=== PATIENT | male | born 1950 | race Two or more races ===

== ENCOUNTER 2023-10-21 07:08 | Day surgery (SDC) | payer OTHER, SELFPAY ==
[2023-10-21] VITALS (14 sets, daily range): BP systolic 115–137; BP diastolic 61–71; BMI 25.9
[2023-10-21] MEDS: LOW STRENGTH ASPIRIN 81 MG PO (07:58)
[2023-10-21 08:00] LABS: Glucose - Point of Care 122 mg/dl (70-99)
[2023-10-21] MEDS: NSS 239 ML IV (08:01)
--- NOTE | 2023-10-21 10:30 | ITS.CL.CATH ---
[facility] - Catheterization
Cardiac Catheterization
Procedure Report:
LEFT HEART CATHETERIZATION
Date of Procedure: October 21, 2023
Procedures performed:
1: Coronary angiography
2: Left ventriculography
Primary Care Physician: Dr. Abhi Crum
Primary Senior Marketing Analyst: Myself
INDICATION: The patient is a 72-year-old male with a past medical history of coronary artery disease status post distant LAD stenting followed by restenting in May 2024 at [facility], diabetes mellitus and hypertension who presents
with recurrent exertional dyspnea. Nuclear perfusion imaging suggests significant LAD territory ischemia.
ACCESS: The patient was prepped and draped in usual sterile fashion. A 6 Togolese sheath was placed in the right common femoral artery using the Seldinger over the wire technique under ultrasound guidance. The right radial artery was attempted but
under ultrasound appears to be occluded after his May catheterization.
HEMODYNAMIC FINDINGS (mmHg):
LV(s/d,EDP): 140/11, 22
Ao(s/d,m): 140/76, 97
ANGIOGRAPHIC FINDINGS:
Single-plane Left Ventriculography in COUGHLIN Projection: Mild inferoapical hypokinesis. Severe apical hypokinesis. Severe anteroapical hypokinesis. Overall moderate LV systolic dysfunction with a visually estimated ejection fraction of 40%. No
significant mitral regurgitation
Coronary Angiography:
Dominance: Right
Left Main: Medium caliber with mild distal tapering.
Left Anterior Descending: The left anterior descending artery is functionally occluded with critical diffuse obstructive in-stent restenosis of the previously placed overlapping stents. There is a trickle of antegrade flow into 2 small jailed
diagonal branches. Very faint underfilling of the mid and distal LAD is appreciated. The distal LAD also fills via right to left collaterals.
Ramus intermedius: There is a small to medium caliber ramus intermedius branch present that has a 80 to 90% ostial stenosis with normal distal flow. This appears too small for surgical grafting.
Left Circumflex: The left circumflex has a somewhat acute takeoff from the left main and gives rise to 1 major obtuse marginal branch that is widely patent with only mild luminal irregularities.
Right Coronary: The right coronary artery is a large-caliber dominant vessel that gives rise to a small caliber dual posterior descending artery system and larger posterior left ventricular branch system. Right coronary artery has at worst a smooth
40 to 50% proximal stenosis at the first bend followed by distal luminal irregularities. This appears unchanged from prior angiography in 2017.
Fluoroscopy Time (min): 4.0
Radiation Dose (mGy): 441
DAP (Gy.cm2): 33
Closure device: 6 Togolese Angio-Seal to right common femoral artery without acute complication.
Complications: None.
ASSESSMENT:
1: Severe single-vessel obstructive disease with functional occlusion of the recently placed LAD stent.
2: Unchanged anatomy with high-grade small vessel disease in the ramus and nonobstructive disease in the circumflex/OM1 and dominant right coronary artery.
3: Moderate LV dysfunction with LAD territory wall motion abnormality and no significant mitral gravitation.
CONCLUSIONS and RECOMMENDATIONS:
1: CT surgical evaluation for CABG. There is significant viability in the anterior wall and I believe a reasonable surgical target in the LAD.
Sujata Freeman M.D.
Copy to: Dr. Abhi Crum
[2023-10-21] MEDS: NSS 1000 IV (10:32)
[2023-10-21 10:39] LABS: Glucose - Point of Care 89 mg/dl (70-99)
--- NOTE | 2023-10-21 13:30 | PTCARENOTE ---
Nathalia WELLS made aware of pt's episode of right groin bleeding. Currently pt remains in bed with dressing dry and intact to right groin. Per SEAT INSTALLER pt to remain on bedrest until 1400 and then should attempt ambulating again. If no recurrent
bleeding pt may be discharged after 1400.
== END 2023-10-21 14:15 | disposition home or self-care (01) ==
LOC: CATH 07:08
PROVIDERS: ATTENDING PHYSICIAN Internal Medicine Interventional Cardiology; PRIMARYCARE PHYSICIAN Internal Medicine
DX: I25.10 Atherosclerotic heart disease of native coronary artery without angina pectoris (principal); R06.09 Other forms of dyspnea; I10 Essential (primary) hypertension; E11.9 Type 2 diabetes mellitus without complications; Z95.5 Presence of coronary angioplasty implant and graft
CPT/HCPCS: 82962; 93005; 93458; C1760; C1894; Q9967

== ENCOUNTER 2023-11-11 05:01 | Inpatient (IN) | payer OTHER, SELFPAY ==
[2023-10-29 08:08] VITALS: BMI 26.4
[2023-10-29 08:49] LABS: % Basophils 0.9 % (0-2); % Eosinophils 2.1 % (0-6); % Immature Granulocytes 0.1 % (0-0.5); % Lymphocytes 35.2 % (20.5-51.1); % Monocytes 8.6 % (1.7-9.3); % Neutrophils 53.1 % (42.2-75.2); Absolute Basophils 0.1 10^3/uL (0-0.2); Absolute Eosinophils 0.1 10^3/uL (0-0.7); Absolute Lymphocytes 2.4 10^3/uL (1.2-3.4); Absolute Monocytes 0.6 10^3/uL (0.1-0.6); Absolute Neutrophils 3.6 10^3/uL (1.4-6.5); Hematocrit 36.4 % (39.0-52.0); Hemoglobin 11.1 g/dL (13.0-18.0); Mean Corp Hgb Conc. 30.5 g/dL (33.0-37.0); Mean Corpuscular Hgb 23.5 pg (27.0-31.0); Nucleated Red Blood Cells % 0 % (-); Platelet Count 207 10^3/uL (130-400); Red Blood Cell Count 4.73 10^6/uL (4.70-6.10); Red Cell Dist. Width 17.3 % (11.5-14.5); White Blood Cell Count 6.7 10^3/uL (4.8-10.8)
[2023-10-29 08:53] LABS: Urine Albumin Negative (Neg - Trace); Urine Bilirubin Negative (Negative); Urine Character Clear (Clear); Urine Color Straw; Urine Glucose 3+ (Negative); Urine Ketone Negative (Negative); Urine Leukocyte Negative (Negative); Urine Nitrite Negative (Negative); Urine Occult Blood Negative (Negative); Urine Specific Gravity 1.005 (<1.030); Urine Urobilinogen Negative (Neg - 1+)
[2023-10-29 08:55] LABS: INR 1.02; PT 13.4 Sec (11.4-14.6)
[2023-10-29 08:56] LABS: APTT 28.4 Sec (23.4-35.0)
[2023-10-29 09:33] LABS: ALT (SGPT) 16 U/L (0-50); AST (SGOT) 23 U/L (17-59); Albumin 4.3 g/dl (3.5-5.0); Alkaline Phosphatase 61 U/L (38-126); Blood Urea Nitrogen 12 mg/dl (9-20); Calcium 10.1 mg/dl (8.4-10.2); Carbon Dioxide 27 mmol/L (22-30); Chloride 103 mmol/L (98-107); Direct Bilirubin 0.2 mg/dl (0.0-0.4); Estimated Creatinine Clearance 65 ml/min; Glucose 114 mg/dl (70-99); Potassium 4.3 mmol/L (3.5-5.1); Sodium 134 mmol/L (135-145); Total Bilirubin 0.8 mg/dl (0.2-1.3); Total Protein 7.5 g/dl (6.3-8.2); eGFR > 60.00
--- NOTE | 2023-10-29 10:19 | CM ---
CM met w/ patient and granddtrPadmini Jaquez during PATs for planned CABG.
Granddtr. assisted with translation as patient is primarily Scientology speaking.
Pt. resides w/ his dtr. and MARIA DOLORES in a private 2 story home without any steps to enter. Pt. is functionally indep. without use of any assisted device.
Pt. has supportive family that assist as needed. Pt. has several family members that have gone thru this surgery that he can lean on for support.
Reviewed pre and post op routines.
Soap, shower instructions and Cardiac Surgery booklet provided.
Discussed post op restrictions to include lifting, driving, flying and sternal precautions.
Post op appointments, Cardiac Rehab and visit from CT Transitional Care RN reviewed. Pt. agreeable to CT RN visit.
Plan for CT Surgery 11/10.
Anticipated DC plan is for home with CT Transitional Care RN.
CM to follow.
[2023-10-29 12:20] LABS: Glycohemoglobin (HgbA1c) 6.7 % (4.0-5.6)
[2023-11-11] VITALS (26 sets, daily range): BP systolic 100–144; BP diastolic 62–82
[2023-11-11] MEDS: LOPRESSOR 25 MG PO (05:47)
[2023-11-11] MEDS: PROTONIX 40 MG PO (05:47)
[2023-11-11] MEDS: MAGNESIUM OXIDE 500 MG PO (05:47)
[2023-11-11] MEDS: BACTROBAN 2% OINTMENT 1 APPLIC NASAL ×2 (05:49→20:00)
--- NOTE | 2023-11-11 06:22 | W.CVOR.SURPR ---
CVOR Surgeon Immed Pre Op
-
I have examined this patient prior to performance of the scheduled procedure.
The patient's condition is unchanged from the time of the dictated/written History and
Physical and the patient is able to undergo the scheduled procedure.
MIDCAB
[2023-11-11 07:24] LABS: ACT+ - POC 96 Seconds (82-134)
[2023-11-11 07:28] LABS: B.E. - POC -4.1 mmol/L; Glucose - POC 118 mg/dl (65-99); HCO3 - POC 23 mmol/L (21-29); Hematocrit - POC 34 % PCV (42-52); Hemodilution- POC Yes; Hemoglobin Calculated - POC 11.4; Ionized Calcium - POC 1.31 mmol/L (1.12-1.27); PCO2 - POC 47 mmHg (35-45); PO2 - POC 509 mmHg (80-100); Potassium - POC 3.6 mmol/L (3.6-5.0); Sodium - POC 143 mmol/L (135-145); pH - POC 7.29 (7.35-7.45)
[2023-11-11 07:38] LABS: Urine Albumin Negative (Neg - Trace); Urine Bilirubin Negative (Negative); Urine Character Clear (Clear); Urine Color Yellow; Urine Glucose 3+ (Negative); Urine Ketone Negative (Negative); Urine Leukocyte Negative (Negative); Urine Nitrite Negative (Negative); Urine Occult Blood Negative (Negative); Urine Urobilinogen Negative (Neg - 1+); Urine pH 6.5 (5.0-9.0)
--- NOTE | 2023-11-11 08:56 | CM ---
Reviewed chart. Mr. Roach is in the operating room today. Prior to admission he resides with his daughter and son-in-law in a two story home without any steps to enter. Prior to admission he was independent with ambulation and adls. Medical
work-up in progress. The discharge plan is to return home with his daughter and son-in-law and a home visit by the Cardiothoracic Transitional Care Nurse when medically stable.
[2023-11-11 09:37] LABS: B.E. - POC -5.9 mmol/L; Glucose - POC 205 mg/dl (65-99); HCO3 - POC 21 mmol/L (21-29); Hematocrit - POC 30 % PCV (42-52); Hemodilution- POC Yes; Hemoglobin Calculated - POC 10.3; Ionized Calcium - POC 1.18 mmol/L (1.12-1.27); O2 Saturation %Calculated-POC 99.5 5 (92-96); PCO2 - POC 43 mmHg (35-45); PO2 - POC 186 mmHg (80-100); Potassium - POC 3.8 mmol/L (3.6-5.0); Sodium - POC 141 mmol/L (135-145); pH - POC 7.28 (7.35-7.45)
[2023-11-11 09:44] LABS: ACT+ - POC 636 Seconds (82-134)
[2023-11-11 10:47] LABS: ACT+ - POC 107 Seconds (82-134)
[2023-11-11 10:48] LABS: B.E. - POC -3.8 mmol/L; Glucose - POC 144 mg/dl (65-99); HCO3 - POC 22 mmol/L (21-29); Hematocrit - POC 25 % PCV (42-52); Hemodilution- POC No; Hemoglobin Calculated - POC 8.5; Ionized Calcium - POC 1.15 mmol/L (1.12-1.27); O2 Saturation %Calculated-POC 99.9 5 (92-96); PCO2 - POC 41 mmHg (35-45); PO2 - POC 320 mmHg (80-100); Potassium - POC 3.5 mmol/L (3.6-5.0); Sodium - POC 143 mmol/L (135-145); pH - POC 7.34 (7.35-7.45)
--- NOTE | 2023-11-11 11:00 | PTCARENOTE ---
Patient received direct from cvor status post robotically assisted MIDCABG x 1 HUANG to LAD. Updated report received from SUNNY Wallace at the bedside. Patient received extubated with usual lines and no swan gaz catheter and no epicardial v wires. Left
pleural/mediastinal chest tube to 1 pleurevac -20 cm wall suction patent for small amount of bloody drainage as documented. Conroy cattheter with temp sensing indicated hypothermia with a core temp of 95.5 degrees F: Magali hugger for warming to
normothermia. See flowrecord for remaining assessments. NSR on monitor. Converted from partial NRB mask at 6l to humidified nasal canula at 4l min. Son at bedside to translate patient requests (speaks only ). Video internet marketing analyst with live
internet marketing analyst available in room if needed foradditional language support.
[2023-11-11 11:19] LABS: Glucose - Point of Care 148 mg/dl (70-99)
--- NOTE | 2023-11-11 11:25 | W.PN.CT.SURG ---
CT Surgery Operative Note
-
CARDIAC SURGERY OPERATIVE REPORT
Preoperative Diagnosis: Coronary Artery Disease with proximal LAD involvement and in-stent restenosis with chronic total occlusion
Postoperative Diagnosis: Same
Procedure(s) Performed:
1. Robotic assisted MIDCAB (single-vessel bypass HUANG in situ to LAD)
2. Robotic assisted harvest of internal mammary artery with anterolateral mini thoracotomy for CABG
3. Transesophageal echocardiography
4. Doppler ultrasound assessment of HUANG graft
5. Anterior chest wall block with bupivacaine mixture interspaces 6, 5, 4, 3
Date of Surgery: 11/11/23
Comorbidities:
1. Coronary artery disease involving the proximal LAD with occlusion in prior PCI/stent
2. Previous myocardial infarction
3. Hypertension
4. Hyperlipidemia
5. Diabetes type 2
6. Psoriasis
7. BPH
Attending Surgeon: Chris Camarena MD, MS
Assistants: Kathleen Fishman PA-C (present and necessary to first coat operator, exchanging robotic instruments, retraction, suction, exposure, suture management, and wound closure under my direction)
Anesthesiology: Kennedy Haq MD and Rodrigo Campuzano CRNA
Scrub and Circulating RNs: Mariola Hayes RN, Norberto Saunders RN
Back Up Scan Coordinator: Loretta Mccollum CCP
Anesthesia: GETA
EBL: per perfusion records
Products: None
Indication(s) for Procedures: This is a 73-year-old male with a history significant for coronary artery disease status post LAD stent in 2000 and then restenting in May 2024. He developed in-stent restenosis with essentially a chronic total
occlusion of the LAD with left to left collaterals. From a symptomatology standpoint he had intermittent chest burning symptoms with shortness of breath with exertion. The STS risk was discussed with the patient in the office and the shared
decision making was to pursue a single-vessel bypass using his mammary artery to his LAD via a mini invasive approach.
Conduit(s) Quality/Internal Diameter:
HUANG -excellent, uniform in size, harvested in a semi skeletonized fashion
Target(s) Quality/Internal Diameter:
LAD -good, fit a 2.0 mm shunt, Doppler assessment of the graft had excellent biphasic signals
Findings: His left ventricular ejection fraction preoperatively was 55% there were no obvious regional wall motion abnormalities. Following surgery his EF remained the same at 55%. There were no new regional wall motion abnormalities at the
inclusion of the case. He had mild aortic valve insufficiency, mild mitral valve sufficiency, mild tricuspid valve insufficiency which remained unchanged. The HUANG was harvested in a semi-skeletonized fashion. The mammary graft was verified with
Doppler probe to have excellent signals.
Description of Procedure: The patient was taken to the operating room. Their identity and procedure to be performed were verified and they were positioned supine on the operating table. Induction via general anesthesia with endotracheal intubation
was performed and central venous access and arterial monitoring were inserted. A preoperative transesophageal echocardiogram was performed to assess cardiac function and valvular function. The patient was then prepped and draped from chin to feet in
a sterile fashion and positioned with left side bumped up and left arm down. A preoperative time-out was performed with all members of the team present. A Veress needle was used to enter the chest after stopping ventilation with the left lung
verified by anesthesia. We started with slow pressure insufflation which they tolerated. An 8 mm port was inserted in the fourth intercostal space laterally and a camera was inserted verifying no intrathoracic iatrogenic injuries. 2 additional
ports(8 mm and 8mm) were placed along the midaxillary line on either side of the camera port. Single 12 mm air seal port was used for the web press operator assistant to pass instruments and sutures. The robotic platform was then docked and targeted towards the
mammary. An anterior chest wall block was performed using the lidocaine mixture at intercostal spaces 6, 5, 4, 3 using 5 cc in each space. The mammary was harvested in a semi-skeletonized fashion. A posterior pericardiotomy was created to
facilitate drainage. Once sufficient length was obtained, an anterior pericardiotomy was created to identify the distal target. This was marked with a marker robotically. Full heparinization was given (a total of 30,000 units). 3 Hem-o-sarah clips
were used to occlude and divide the mammary distally at its bifurcation, and a single 5-0 prolene suture was used to secure the mammary to the pericardium overlying the LAD target. The robot platform was then undocked and the patient and a left
anterior thoracotomy was created over the target vessel. Upon entering the thoracic cavity the mammary and LAD were visible. A thoracotomy retractor was placed to facilitate exposure and a pericardial well was created. The ACT was confirmed to be
over 400.
The cardiac suction stabilizer was used to isolate the LAD target. The distal end of the mammary was prepped and beveled to size. We verified orientation and length of the STEPH and found brisk flow. A coronary arteriotomy was created and enlarged
with coronary jordan scissors. A 2mm shunt was inserted to facilitate exposure and continued chick[place]om[place] coronary perfusion. An end-to-side anastomosis was created with a 7-0 prolene. The bulldog on the mammary was removed which demonstrated excellent
graft flow. The shunt was then remove and demonstrated poor chick[place]om[place] tribe flow as the LAD was CONTRACT FORESTER lesion. Appropriate hemostasis was confirmed. The mammary graft was inspected and was free from kinking or twisting and flowprobe evaluation demonstrated
good flow signals. A test dose of protamine was administered and the patient was monitored for any adverse reaction before resuming protamine. A 19F kendrick drain into the pericardium and through the posterior pericardiotomy into the left chest.
Fascia was approximated with #1 vicryl suture. Local analgesia was administered to the surgical sites. The subcutaneous, dermis and epidermis were closed in layers in a running fashion. The skin wound was cleansed and dressed.
All instrument, sponge, and needle counts were confirmed to be correct x 2 at the end of the operation. The patient was transferred to the cardiac intensive care unit extubated in critical but stable condition.
I, Dr. Chris Camarena, was present, scrubbed for, and performed all critical elements of this procedure.
Chris Camarena MD, MS
Cardiothoracic Surgeon
[facility]
This operative dictation was created using the [employer] dictation system. Please excuse any grammatical, typographical, or 'sound alike' errors
[2023-11-11 11:27] LABS: Hematocrit 30.8 % (39.0-52.0); Hemoglobin 9.5 g/dL (13.0-18.0); Platelet Count 167 10^3/uL (130-400)
[2023-11-11] MEDS: ANCEF 10 IV ×2 (11:28)
[2023-11-11] MEDS: NEURONTIN PO (11:29)
[2023-11-11] MEDS: NSS 500 IV (11:29)
[2023-11-11] MEDS: DILAUDID 0.25 MG IV (11:29)
[2023-11-11 11:46] LABS: Blood Urea Nitrogen 9 mg/dl (9-20); Estimated Creatinine Clearance 91 ml/min; Glucose 147 mg/dl (70-99)
[2023-11-11 11:49] LABS: APTT 27.9 Sec (23.4-35.0); INR 1.29; PT 16.2 Sec (11.4-14.6)
[2023-11-11 12:00] LABS: B.E. -2.9 mmol/L; HCO3 23.2 mmol/L (21-28); Ionized Calcium 1.23 mMOL/L (1.15-1.33); O2 Saturation % 98.6 % (94-98); PCO2 45 mmHg (35-48); PO2 118 mmHg (83-108); Potassium 3.4 mMOL/L (3.5-5.1); Sodium 139 mMOL/L (136-145); pH 7.32 (7.35-7.45)
[2023-11-11] MEDS: KCL 50 IV ×2 (12:08→13:09)
[2023-11-11 12:13] LABS: Glucose - Point of Care 130 mg/dl (70-99)
[2023-11-11 13:14] LABS: Glucose - Point of Care 108 mg/dl (70-99)
--- NOTE | 2023-11-11 13:52 | CON.INTV ---
Consultation
Consultation Request
Date/Time Consultation Requested: 11/11/2023
Date/Time Consultation Performed: 11/11/2023
Requesting Provider: Dr. Camarena
Performing Provider: Dr. Jose Nunn
Reason for Consultation: Status post robotic assisted coronary artery bypass
Medical History
-
History of Present Illness:
73-year-old man with history of coronary artery disease with prior stents. Recently diagnosed with 100% LAD proximal occlusion. He was deemed candidate for revascularization.
Underwent robotic assisted coronary artery bypass on 11/11/2023.
Currently in the critical care unit. Intubated on mechanical ventilation. Sedated.
Records reviewed.
Chest tube in place without significant excessive drainage.
Past Medical History
Past Medical History: Other (See assessment and plan section)
Social History
Tobacco: Non-smoker
Alcohol: Occasional
Drug: None
Personal:
Living: Alone
Employment: Retired
Family History
Family History: Unable to Obtain
Allergies / Home Medications
Allergies
Allergy/AdvReac Type Severity Reaction Status Date / Time
No Known Allergies Allergy Verified 10/28/23 15:08
Home Medications
�Medication �Instructions �Recorded �Confirmed �Last Taken �Type
amlodipine 2.5 mg tablet 2.5 mg PO DAILY #1 tab 10/03/20 11/11/23 11/08/23 08:00 Rx
aspirin 81 mg chewable tablet 81 mg PO DAILY 10/03/20 11/11/23 11/10/23 08:00 History
cholecalciferol (vitamin D3) 25 2,000 unit PO HS 10/03/20 11/11/23 11/03/23 08:00 History
mcg (1,000 unit) capsule (Vitamin
D3)
cyanocobalamin (vitamin B-12) 1,000 mg PO HS 10/03/20 11/11/23 11/03/23 08:00 History
1,000 mcg tablet
metoprolol succinate 25 mg 25 mg PO DAILY 10/03/20 11/11/23 11/10/23 08:00 History
tablet,extended release 24 hr
adalimumab 40 mg/0.4 mL 40 mg SC Q15D 10/21/23 11/11/23 10/27/23 08:00 History
subcutaneous pen kit (Humira(CF)
Pen)
calcipotriene 0.005 % topical cream 1 applic topical DAILY 10/21/23 11/11/23 11/10/23 08:00 History
clobetasol 0.05 % topical cream 1 applic topical DAILY 10/21/23 11/11/23 11/10/23 08:00 History
clopidogrel 75 mg tablet (Plavix) 75 mg PO DAILY 10/21/23 11/11/23 11/05/23 08:00 History
empagliflozin 10 mg tablet 10 mg PO DAILY 10/21/23 11/11/23 11/08/23 History
famotidine 40 mg tablet 40 mg PO DAILY 10/21/23 11/11/23 11/10/23 08:00 History
metformin 500 mg tablet 500 mg PO BID 10/21/23 11/11/23 11/10/23 08:00 History
nitroglycerin 0.4 mg sublingual 0.4 mg sublingual Q5M PRN CHEST 10/21/23 11/11/23 10/12/23 08:00 History
tablet PAIN
polyethylene glycol 3350 17 gram 17 g PO DAILY 10/21/23 11/11/23 11/10/23 08:00 History
oral powder packet
rosuvastatin 40 mg tablet 40 mg PO DAILY 10/21/23 11/11/23 11/10/23 08:00 History
tamsulosin 0.4 mg capsule 0.4 mg PO BID 10/21/23 11/11/23 11/10/23 08:00 History
valsartan 80 mg tablet 80 mg PO DAILY 10/21/23 11/11/23 11/08/23 08:00 History
Review of Systems
-
Unable to Obtain full review of systems at this time due to: Patient Intubation
Vitals / Labs / Diagnostic Testing
Vital Signs
Temp Pulse Resp BP Pulse Ox
96.2 F L 66 13 100/62 95
11/11/23 12:16 11/11/23 12:30 11/11/23 12:30 11/11/23 12:16 11/11/23 12:30
Lab Data
11/11/23 11:17
Laboratory Results
11/11/23 11/11/23
11:17 11:44
PT 16.2 H
INR 1.29
APTT 27.9
pH 7.32 L
pCO2 45
pO2 118 H
HCO3 23.2
O2 Delivery Level
Diagnostic Testing:
Physical Exam
-
HEENT: Normocephalic
Cardiovascular: S1/S2
Respiratory: Clear, Non-Labored Respirations and Other (Chest tube in place without air leak or excessive drainage.)
GI: Soft and Non Distended
Neurology: Awake, Alert and No Motor Deficits
Skin: Warm
General: Respiratory Distress (n)
Assessment
-
Status post robotic assisted coronary artery bypass 11/11/2023-Dr. Camarena
Postoperative anemia
Conditions present prior admission:
History of coronary Tory disease with prior stents
Hypertension
Hyperlipidemia
Type 2 diabetes
Psoriasis
BPH
Vitamin D deficiency
Assessment and plan:
Patient already extubated. On low rate supplemental oxygen.
Following commands.
Encourage incentive spirometry
Increase activity as able
Anemia noted-no evidence of acute bleeding
Follow H&H serially
Hemodynamics -stable.
Currently not requiring any vasoactive drugs.
Adequate urinary output, Conroy catheter in place
Normal renal function
Chest tube with no excessive drainage-no air leak.
Chest x-ray reviewed: With no pneumothorax or fluid collections.
Remain nothing by mouth
Head of the bed elevation
Glycemic control per protocol
DVT prophylaxis when safe from the surgical perspective.
--- NOTE | 2023-11-11 14:00 | PTCARENOTE ---
No acute changes. Nasal canula oxygen titrated to 2L. NSR. No dumping from left med/pl chest tube. HOB elevated to 35 degrees.
[2023-11-11 14:19] LABS: Glucose - Point of Care 91 mg/dl (70-99)
[2023-11-11] MEDS: TYLENOL 1000 MG PO ×2 (15:04→21:37)
[2023-11-11] MEDS: LOW STRENGTH ASPIRIN 81 MG PO (15:04)
[2023-11-11] MEDS: NEURONTIN 100 MG PO ×2 (15:07→21:37)
[2023-11-11] MEDS: PACERONE 200 MG PO ×2 (15:07→21:37)
[2023-11-11 15:33] LABS: Glucose - Point of Care 108 mg/dl (70-99)
[2023-11-11 15:38] LABS: Hematocrit 32.9 % (39.0-52.0); Hemoglobin 10.1 g/dL (13.0-18.0); Platelet Count 183 10^3/uL (130-400)
[2023-11-11 15:59] LABS: Magnesium 2.1 mg/dl (1.6-2.3); Potassium 4.2 mmol/L (3.5-5.1)
--- NOTE | 2023-11-11 16:00 | PTCARENOTE ---
No acute changes. Viytals stable. Left radial art line dc. Right IJ slik cvp port dc as per order. Tolerating clear liquids well.
--- NOTE | 2023-11-11 16:36 | CON.CAR ---
Addendum entered and electronically signed by May Marin MD 11/11/23 17:11:
I saw and examined the patient.
The Compressed Gas Tester's note was reviewed and I agree with the note.
Comment: Patient is a 73-year-old Gujarati speaking gentleman with past medical history of hypertension, hyperlipidemia, type 2 diabetes mellitus, BPH CAD status post proximal LAD stent in 2000, who presented back in October 21, 2023 with exertional
dyspnea found to have a functional occlusion of the LAD resulting in CT surgical evaluation and now status post robotic assisted MID CABG with HUANG to LAD by Dr. Chris Camarena overall doing well.
Vital signs and lab work reviewed.
On exam patient appears well in no acute distress, family is at bedside, scar on the left chest appears to be healing well, normal S1 and S2, no murmurs, rubs or gallops, lungs are clear to auscultation anteriorly, abdomen is soft, nontender,
nondistended with active bowel sounds, warm extremities.
Recommendations:
-Extubated earlier today. Off pressors with stable hemodynamics.
-EKG with evidence of limb lead reversal and anterior T wave changes which appear stable from prior EKG from October 29, 2023
-Last echocardiogram and intraoperative JOSÉ with LVEF preserved. Hemoglobin stable, continue to follow postoperatively.
-As hemodynamics allow we will add back home cardiac medications.
May Marin MD, [facility], [facility]
Original Note:
Consultation
Consultation Request
Date/Time Consultation Performed: 11/11/23
Requesting Provider: Dr. Camarena
Performing Provider: Teetee Jade PA-C for Dr. Marin
Reason for Consultation: post robotic CABG
Medical History
-
Chief Complaint: robotic assisted CAB
History of Present Illness:
Patient is a 73-year-old male with past medical history of CAD status post proximal LAD stent in 2000, and again in 2013, as well as in 05/2023. He underwent cardiac catheterization 10/21/2023 due to recurrent exertional dyspnea which showed
functional occlusion of LAD stent, resulting in CT surgical evaluation for CABG. Today he underwent robotic assisted MIDCAB (HUANG to LAD). Cardiology consulted for assistance with postoperative management. Other past medical history includes
hypertension, hyperlipidemia, diabetes.
PMH:
CAD status post proximal LAD stent in 2000, 2013, as well as 05/2023
Exertional dyspnea resulting in cardiac catheterization 10/21/2023 with functional occlusion of recently placed LAD stent
Hypertension
Hyperlipidemia
Diabetes
BPH
Psoriasis
Past Medical History
Past Medical History: Other (in HPI)
Social History
Tobacco: Non-Smoker
Alcohol: Occasional
Employment: Retired
Allergies / Home Medications
Allergy/AdvReac Type Severity Reaction Status Date / Time
No Known Allergies Allergy Verified 10/28/23 15:08
�Medication �Instructions �Recorded �Confirmed �Type
amlodipine 2.5 mg tablet 2.5 mg PO DAILY #1 tab 10/03/20 11/11/23 Rx
aspirin 81 mg chewable tablet 81 mg PO DAILY 10/03/20 11/11/23 History
cholecalciferol (vitamin D3) 25 2,000 unit PO HS 10/03/20 11/11/23 History
mcg (1,000 unit) capsule (Vitamin
D3)
cyanocobalamin (vitamin B-12) 1,000 mg PO HS 10/03/20 11/11/23 History
1,000 mcg tablet
metoprolol succinate 25 mg 25 mg PO DAILY 10/03/20 11/11/23 History
tablet,extended release 24 hr
adalimumab 40 mg/0.4 mL 40 mg SC Q15D 10/21/23 11/11/23 History
subcutaneous pen kit (Humira(CF)
Pen)
calcipotriene 0.005 % topical cream 1 applic topical DAILY 10/21/23 11/11/23 History
clobetasol 0.05 % topical cream 1 applic topical DAILY 10/21/23 11/11/23 History
clopidogrel 75 mg tablet (Plavix) 75 mg PO DAILY 10/21/23 11/11/23 History
empagliflozin 10 mg tablet 10 mg PO DAILY 10/21/23 11/11/23 History
famotidine 40 mg tablet 40 mg PO DAILY 10/21/23 11/11/23 History
metformin 500 mg tablet 500 mg PO BID 10/21/23 11/11/23 History
nitroglycerin 0.4 mg sublingual 0.4 mg sublingual Q5M PRN CHEST 10/21/23 11/11/23 History
tablet PAIN
polyethylene glycol 3350 17 gram 17 g PO DAILY 10/21/23 11/11/23 History
oral powder packet
rosuvastatin 40 mg tablet 40 mg PO DAILY 10/21/23 11/11/23 History
tamsulosin 0.4 mg capsule 0.4 mg PO BID 10/21/23 11/11/23 History
valsartan 80 mg tablet 80 mg PO DAILY 10/21/23 11/11/23 History
Review of Systems
-
Unable to obtain full review of systems at this time due to: Language Barrier
History Source: Patient and Family
All other systems: Negative unless noted
Physical Exam
Vital Signs
Temp Pulse Resp BP Pulse Ox
99.1 F 73 16 117/68 98
11/11/23 15:32 11/11/23 15:45 11/11/23 15:45 11/11/23 15:33 11/11/23 15:45
Lab Results
11/11/23 15:25
11/11/23 15:25
Physical Exam
General: No Apparent Distress, Comfortable and Other (on supp O2)
HEENT: Normocephalic, Anicteric and Moist Mucous Membranes
Respiratory: Clear and Non Labored Respirations
Cardiac: S1/S2 and Regular Rhythm
GI: Soft and Non Tender
Musculoskeletal: No Clubbing, No Cyanosis and Edema (trace of B/L LE)
Skin: Warm and Dry
Neuro: AO x 3
Impression / Plan
-
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
Assessment:
Robotic assisted MIDCAB (single-vessel bypass HUANG in situ to LAD) via mini thoracotomy 11/11/23
Post op anemia
CAD status post proximal LAD stent in 2000, 2013, as well as 05/2023
Exertional dyspnea resulting in cardiac catheterization 10/21/2023 with functional occlusion of recently placed LAD stent
Hypertension
Hyperlipidemia
Diabetes
BPH
Psoriasis
ECHO 09/25/2023 at [facility]: EF 50%, mild MR, mild AI, RVSP 35 mmHg, apex, mid anteroseptal segment and mid inferior lateral segment now abnormal, mid and apical anteroseptum, mid inferolateral segment, apex abnormal as well
Plan:
-Status post robotic assisted MIDCAB, single-vessel HUANG in situ to LAD via minithoracotomy 11/11/2023
-Doing well. Awake and oriented. States pain is well-controlled through translation per family at bedside
-Off pressors. BP stable
-In sinus rhythm by review of tele. EKG sinus rhythm with evidence of limb lead reversal and anterior T wave abnormality, stable compared to prior from 10/28
-IntraOp JOSÉ with preserved EF
-Hemoglobin 10.1. Follow postop
-Prior to admission was on aspirin and Plavix
-Prior to admission was on Toprol, Jardiance, Norvasc, valsartan, Crestor
-Will follow
Data Reviewed
-
EKG: Tracing Personally Visualized and interpreted
Medical Tests (Nuc Med, Echo etc): Report Reviewed by me
Labs: Labs Reviewed by me
Old Records: Reviewed
[2023-11-11] MEDS: ANCEF 5 IV (17:03)
--- NOTE | 2023-11-11 17:50 | PTCARENOTE ---
Assisted oob to chair with assist of 2 nurses: BP normotensive sitting at side of bed and patient does deny dizziness or light headedness. NSR. Oxygen titrated down to room air. No 'dumping' from chest tube. NSR on monitor.
[2023-11-11 17:57] LABS: Glucose - Point of Care 139 mg/dl (70-99)
--- NOTE | 2023-11-11 20:00 | PTCARENOTE ---
pt AAOx4 w/o complaints of pain sitting in chair. VSS NS on monitor. RA 97%, GI passing gas, damian clear yellow w/ adequate output, all surgical sights CDI, CT sight CDI with minimal output. see worklist for detailed assessment
[2023-11-11] MEDS: SENOKOT-S 1 TABLET PO (20:01)
[2023-11-11 20:05] LABS: Glucose - Point of Care 123 mg/dl (70-99)
[2023-11-11] MEDS: FLEXERIL 5 MG PO (21:38)
[2023-11-11] MEDS: ROXICODONE 5 MG PO (21:38)
[2023-11-11 21:46] LABS: Glucose - Point of Care 92 mg/dl (70-99)
[2023-11-11] MEDS: DILAUDID 0.5 MG IV (22:30)
[2023-11-11 23:59] LABS: Glucose - Point of Care 115 mg/dl (70-99)
[2023-11-12] VITALS (52 sets, daily range): BP systolic 82–120; BP diastolic 44–74; PULSE 66; O2SAT 97–98; BMI 26.5
--- NOTE | 2023-11-12 | PTCARENOTE ---
no change from previous assessment
[2023-11-12] MEDS: ANCEF 5 IV ×2 (02:20→08:16)
[2023-11-12 02:23] LABS: Glucose - Point of Care 120 mg/dl (70-99)
[2023-11-12 04:39] LABS: Glucose - Point of Care 101 mg/dl (70-99)
[2023-11-12 05:19] LABS: Hematocrit 30.8 % (39.0-52.0); Hemoglobin 9.4 g/dL (13.0-18.0); Mean Corp Hgb Conc. 30.5 g/dL (33.0-37.0); Mean Corpuscular Hgb 23.2 pg (27.0-31.0); Mean Platelet Volume 10.3 fL (7.4-10.4); Platelet Count 169 10^3/uL (130-400); Red Blood Cell Count 4.05 10^6/uL (4.70-6.10); Red Cell Dist. Width 17.1 % (11.5-14.5); White Blood Cell Count 13.1 10^3/uL (4.8-10.8)
[2023-11-12 05:27] LABS: Blood Urea Nitrogen 13 mg/dl (9-20); Calcium 9.2 mg/dl (8.4-10.2); Carbon Dioxide 25 mmol/L (22-30); Chloride 106 mmol/L (98-107); Estimated Creatinine Clearance 91 ml/min; Glucose 91 mg/dl (70-99); Iron 43 ug/dl (49-181); Magnesium 2.3 mg/dl (1.6-2.3); Potassium 3.9 mmol/L (3.5-5.1); Sodium 133 mmol/L (135-145); eGFR > 60.00
[2023-11-12 05:36] LABS: Percent Saturation 11 % (20-50); Total Iron Binding Capacity 378 ug/dl (261-462)
[2023-11-12 06:24] LABS: Glucose - Point of Care 105 mg/dl (70-99)
--- NOTE | 2023-11-12 06:35 | W.PN.CT ---
Today's Communication / Plan
-
-pod #1
-no significant issues overnight, doing well overall. Dominic is at bedside to translate.
-L pleur CT output 190/340 in 12/24 hrs, no air leak
-anemia preop- low iron/ low ferritin - will start iv iron
-current meds (ASA, Plavix, Lopressor, Amio, Crestor, Protonix). Lidocaine patch, Neurontin, Flexeril, Malinda, Tylenol for pain
-encourage IS, OOB
Assessment / Plan
-
- s/p Robotic assisted MIDCAB (single-vessel bypass HUANG in situ to LAD) on 11/11/[address] Camarena, pod #1
- intraop JOSÉ: LVEF was 55% pre and post with no regional wma. He had mild aortic valve insufficiency, mild mitral valve sufficiency, mild tricuspid valve insufficiency which remained unchanged.
- Coronary Artery Disease with proximal LAD involvement and in-stent restenosis with chronic total occlusion
- Previous myocardial infarction
- Hypertension
- Hyperlipidemia
- Diabetes type 2 (A1c 6.7)
- Psoriasis
- BPH
- Incidental finding of 4mm lung nodules on CTA
- Microcytic anemia preop
- Acute postop blood loss anemia - stable, without trasfusion
- Acute postop atelectasis
Discussed patient care with: Nursing and Care Team
Subjective
Procedure
- s/p Robotic assisted MIDCAB (single-vessel bypass HUANG in situ to LAD) on 11/11/[address] Camarena
-
Date of Service: November 11, 2023
Objective Data
-
Lab Results
11/11/23 15:25
11/11/23 15:25
PT 16.2 Sec (11.4-14.6) H 11/11/23 11:17
INR 1.29 11/11/23 11:17
APTT 27.9 Sec (23.4-35.0) 11/11/23 11:17
Vital Signs
Vital Signs
Temp Pulse Resp BP Pulse Ox
98.8 F 68 15 124/70 97
11/11/23 20:00 11/11/23 21:45 11/11/23 21:45 11/11/23 21:30 11/11/23 20:00
CT Intake/Output/Weight
11/11/23 11/11/23 11/12/23
06:59 18:59 06:59
Intake Total 1005.1 / 1018.3 13.2 / 1018.3
Output Total 905 / 1075 170 / 1075
Balance 100.1 / -56.7 -156.8 / -56.7
SaO2: 97
Physical Exam
-
General: Awake and AOx3
Cardiovascular: Regular rate & rhythm, No Murmurs and No Rub
Respiratory: Decreased Breath Sounds
Sternum: Stable
Incision: Clean, Dry and Intact
Extremities: No Edema (2+ DP b/l)
Abdomen: soft, nontender, nondistended, + bowel sounds
Data Reviewed
-
Lab Results: Results Reviewed
Medications: Active Meds Reviewed
Chest X-Ray: Report Reviewed and Image Reviewed
ECG: Report Reviewed and Image Reviewed
--- NOTE | 2023-11-12 07:12 | PTCARENOTE ---
nati Rowland/Jazzy @[phone]
--- NOTE | 2023-11-12 07:35 | W.PN.ANS.POP ---
Anesthesia Post Operative
- Anesthesia Post Op Note
Vital Signs Stable-See Nursing Note: Yes
Airway Patent: Yes
Adequate Pain Control: Yes
Change in Mental Status: No
Current Postoperative Nausea & Vomiting: No
Anesthesia Complications: No
General Anesthetic Recall: No
Unplanned Admission: No
Post Op Hydration Adequate: Yes
--- NOTE | 2023-11-12 08:00 | PTCARENOTE ---
Resumed care from previous RN. walking rounds completed. patient oob in chair at time of assessment. EKG done with night RN. Urinated 50 mLs into bsc. SR. VSS. Left pleural/mediastinal chest tube to 1 pleurevac -20 cm wall suction. for d/c this
afternoon. Marycarmen d/c this am. urinated. weaned off 2L. 97% RA. Son at bedside to translate. will continue to monitor.
[2023-11-12] MEDS: NSS IV (08:08)
[2023-11-12] MEDS: LOW STRENGTH ASPIRIN 81 MG PO (08:14)
[2023-11-12] MEDS: MAGNESIUM OXIDE 500 MG PO ×2 (08:14→21:12)
[2023-11-12] MEDS: TYLENOL 1000 MG PO ×3 (08:14→21:12)
[2023-11-12] MEDS: BACTROBAN 2% OINTMENT 1 APPLIC NASAL ×2 (08:14→21:08)
[2023-11-12] MEDS: LIDOCAINE 4% PATCH 1 PATCH TOPICAL (08:15)
[2023-11-12] MEDS: NEURONTIN 100 MG PO ×3 (08:15→15:21)
[2023-11-12] MEDS: LOPRESSOR 12.5 MG PO ×2 (08:15→22:30)
[2023-11-12] MEDS: PROTONIX 40 MG PO (08:15)
[2023-11-12] MEDS: PACERONE 200 MG PO ×2 (08:16→15:20)
[2023-11-12] MEDS: SENOKOT-S 1 TABLET PO ×2 (08:16→21:13)
[2023-11-12] MEDS: PLAVIX 75 MG PO (08:16)
[2023-11-12 08:23] LABS: Glucose - Point of Care 160 mg/dl (70-99)
--- NOTE | 2023-11-12 09:33 | W.PN.CARDCBS ---
Addendum entered and electronically signed by May Marin MD 11/12/23 10:24:
I saw and examined the patient.
The Medical Clerical Assistant's note was reviewed and I agree with the note.
Comment: Status post robotic assisted MID CABG with HUANG to LAD by Dr. Chris Camarena, postop day 1. overall doing well. Some chest discomfort overnight around 1 AM which improved after getting out of bed into a chair. No issues since then.
Vital signs and lab work reviewed.
On exam patient appears well in no acute distress, family is at bedside, scar on the left chest appears to be healing well, normal S1 and S2, no murmurs, rubs or gallops, lungs are clear to auscultation anteriorly, abdomen is soft, nontender,
nondistended with active bowel sounds, warm extremities.
Recommendations:
-No significant events on telemetry
-Anemia noted. Continue to follow hemoglobin. Plan for IV iron.
-Continue current cardiac medications with plan to resume home medications as hemodynamics allow. Blood pressure is borderline for now.
-In case he continues to have some chest discomfort, consider IV diuresis. Ambulate, out of bed into a chair, encourage incentive spirometry.
May Marin MD, [facility], [facility]
Original Note:
Today's Communication / Plan
-
continue post op care
follow volume status
continue asa, plavix
Impression / Plan
-
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
Assessment:
Robotic assisted MIDCAB (single-vessel bypass HUANG in situ to LAD) via mini thoracotomy 11/11/23
Post op anemia
CAD status post proximal LAD stent in 2000, 2013, as well as 05/2023
Exertional dyspnea resulting in cardiac catheterization 10/21/2023 with functional occlusion of recently placed LAD stent
Hypertension
Hyperlipidemia
Diabetes
BPH
Psoriasis
ECHO 09/25/2023 at [facility]: EF 50%, mild MR, mild AI, RVSP 35 mmHg, apex, mid anteroseptal segment and mid inferior lateral segment now abnormal, mid and apical anteroseptum, mid inferolateral segment, apex abnormal as well
Plan:
-Status post robotic assisted MIDCAB, single-vessel HUANG in situ to LAD via minithoracotomy 11/11/2023
-reports some chest tightness/SOB with lying flat, improved with sitting up. would follow volume status, could consider for dose of IV lasix x1
-remains in SR. EKG today NSR
-IntraOp JOSÉ with preserved EF
-Hemoglobin 9.4. for IV iron today
-aspirin and Plavix have been resumed
-Prior to admission was on Toprol, Jardiance, Norvasc, valsartan, Crestor. for now continue lopressor, amiodarone
-continue OOB/IS
-Will follow
Progress Note - Technical Assistance Consultant
Subjective
Date of Service: November 12, 2023
reports some chest tightness while lying down, improved with sitting up this AM
Objective
Labs:
11/12/23 04:34
11/12/23 04:34
Labs
Hgb 9.4 g/dL (13.0-18.0) L 11/12/23 04:34
Hct 30.8 % (39.0-52.0) L 11/12/23 04:34
Plt Count 169 10^3/uL (130-400) 11/12/23 04:34
PT 16.2 Sec (11.4-14.6) H 11/11/23 11:17
INR 1.29 11/11/23 11:17
APTT 27.9 Sec (23.4-35.0) 11/11/23 11:17
Sodium 133 mmol/L (135-145) L 11/12/23 04:34
Potassium 3.9 mmol/L (3.5-5.1) 11/12/23 04:34
BUN 13 mg/dl (9-20) 11/12/23 04:34
Creatinine 0.7 mg/dL (0.7-1.3) 11/12/23 04:34
Glucose 91 mg/dl (70-99) 11/12/23 04:34
Vital Signs and I&O:
Vital Signs
Temp Pulse Resp BP Pulse Ox
98.8 F 75 24 106/60 99
11/12/23 04:00 11/12/23 08:15 11/12/23 08:01 11/12/23 07:00 11/12/23 04:00
Vital Signs
Temp Pulse Resp BP Pulse Ox
98.8 F 75 24 106/60 99
11/12/23 04:00 11/12/23 08:15 11/12/23 08:01 11/12/23 07:00 11/12/23 04:00
Intake & Output
11/10/23 11/11/23 11/12/23 11/13/23
07:59 07:59 07:59 07:59
Intake Total 1018.3 / 1028.9 10.6 / 10.6
Output Total 1855 / 1854 130 / 130
Balance -836.7 / -826.1 -119.4 / -119.4
Physical Exam
Physical Exam
GEN: No distress, awake, alert, oriented x3. sitting in chair
HEENT: supple, anicteric, mmm, eomi
LUNGS: CTA B/L, no wheezes
CV: Reg, S1/S2, no murmur
ABD: soft, BS+, NT/ND
EXT: No cyanosis, clubbing, edema
NEURO: Gross non-focal
SKIN: Warm, pink, dry. No rash. L chest incision c/d/i
[2023-11-12] MEDS: FLOMAX 0.400000000000000022 MG PO ×2 (10:21→21:09)
[2023-11-12] MEDS: MIRALAX 17 GRAMS PO (10:21)
[2023-11-12 10:39] LABS: Glucose - Point of Care 180 mg/dl (70-99)
--- NOTE | 2023-11-12 11:06 | PTCARENOTE ---
walked patient down to ivu and back. tolerated well. Chest tube removed in bed post walk. will continue to monitor.
--- NOTE | 2023-11-12 12:00 | PTCARENOTE ---
Pt is Citizen Of [place] and does not speak german. Family reports that the language lines and [employer] do not have their dialect available. A family member stays with the patient 02/02 for translation and patient comfort. Pt does appear to understand
some Italian. He is cooperative and all medications and treatments are explained to the patient and family.
[2023-11-12 12:38] LABS: Glucose - Point of Care 181 mg/dl (70-99)
--- NOTE | 2023-11-12 13:00 | PTCARENOTE ---
Received patient from prior shift. Pt assessment completed, see documentation in medical record. Pt education initiated about ISB use, cough and deep breathing with the heart pillow, mobility, nutrition, pain management, and rest periods. Pt asked
to demonstrate ISB, and patient education completed to correct technique. Pt demonstrated understanding of education using the demonstrate back method. Proper technique with the incentive spirometer will be reinforced, and patient instructed to use
the ISB ten times per hour (minimum). Medication education including medication side effects provided for all medications prior to administering. Pt sitting in the chair and resting comfortably. Medication education will be reinforced throughout the
day. IV site flushed and patent. Cordis site patent and infusing insulin and nss at 10cc per hour kvo.
--- NOTE | 2023-11-12 13:19 | W.PN.INTV ---
Today's Communication / Plan
Recommendations
Continue postoperative care
Follow chest tube output
Follow hemoglobin
Increase activity as able
Follow daily chest x-ray
Assessment
-
Status post robotic assisted coronary artery bypass 11/11/2023-Dr. Camarena
Postoperative anemia
Conditions present prior admission:
History of coronary Tory disease with prior stents
Hypertension
Hyperlipidemia
Type 2 diabetes
Psoriasis
BPH
Vitamin D deficiency
Assessment and plan:
Doing well postoperative day 1
Stable hemodynamically
Encourage incentive spirometry
Increase activity as able.
Anemia noted-no evidence of acute bleeding
Follow H&H serially
Iron has been started.
Adequate urinary output, Conroy catheter in place
Normal renal function
Chest tube with no excessive drainage-no air leak.
Chest x-ray reviewed: With no pneumothorax or fluid collections.
Advance diet as tolerated
Head of the bed elevation
Glycemic control per protocol
DVT prophylaxis when safe from the surgical perspective.
Continue postoperative care
Critical care team will sign off.
Subjective Dataa
Subjective Data
Date of Service:
Date of Service: November 12, 2023
Chief Complaint: Presser Cotton Ginning Follow Up (Status post robotic assisted coronary artery bypass)
Subjective:
Patient offers no new complaints from
Remained hemodynamically overnight
Pain is controlled.
Review of Systems
Cardiopulmonary: Dyspnea on Exertion (none at rest)
GI: Abdominal Pain (n), Nausea (n) and Vomiting (n)
Neuro: Headache (n)
Objective Data
Data Reviewed
Vital Signs / I&O / Oxygen:
Vital Signs
Temp Pulse Resp BP Pulse Ox
98.9 F 63 20 94/57 97
11/12/23 08:00 11/12/23 10:15 11/12/23 10:15 11/12/23 10:00 11/12/23 08:24
Intake and Output
11/11/23 11/12/23 11/13/23
06:59 06:59 06:59
Intake Total 1018.3 / 1018.3 27.6 / 27.6
Output Total 1855 / 1855 130 / 130
Balance -836.7 / -836.7 -102.4 / -102.4
SaO2 97
Nasal Cannula flow liters per 2
minute
Physical Exam
General: Respiratory Distress (n) and Comfortable
HEENT: Normocephalic
Cardiovascular: S1-S2
Respiratory: Clear, Non-Labored Respirations and Chest Tube (No air leak. No excessive drainage)
GI: Soft and Non Distended
Neurology: Awake and No Motor Deficits
Skin: Warm
Labs/Micro/Reports
Lab Data
11/12/23 04:34
11/12/23 04:34
[2023-11-12 14:05] LABS: Glucose - Point of Care 182 mg/dl (70-99)
[2023-11-12] MEDS: FERRLECIT 110 MG IV (14:13)
--- NOTE | 2023-11-12 14:20 | PTCARENOTE ---
Pt noted to have persistent low blood pressure. He denies symptoms and denies dizziness. Discussed with CT CNRP. Assisted back to bed with minimal improvement. Bladder scan 16, pt may be a little dehydrated. Will discuss with CT and keep pt on
bedrest.
--- NOTE | 2023-11-12 14:32 | PTCARENOTE ---
Discussed MAP with CT COMPUTER SYSTEMS DESIGNER and will give fluid bolus 250cc lr.
[2023-11-12 14:45] LABS: Hepatitis C Antibody Negative (Negative)
[2023-11-12] MEDS: LR 250 IV ×2 (14:53→21:21)
[2023-11-12] MEDS: NOVOLIN R INSULIN INFUSION 100 IV (14:54)
[2023-11-12 15:21] LABS: Glucose - Point of Care 134 mg/dl (70-99)
--- NOTE | 2023-11-12 16:00 | PTCARENOTE ---
Prior assessment remains unchanged. Pt education reinforced regarding pain management. Pt instructed about the pain management goal to
achieve a pain scale of 3 out of 10 pain or less. Pt reports his pain is a 2/10. Pt education provided about pain medications and nonpharmaceutical pain management including repositioning, rest, distraction, massage, imagery, hot or cold therapy,
and exercise. Pt demonstrated an understanding of education using his son to communicate with me.
--- NOTE | 2023-11-12 16:30 | PTCARENOTE ---
Prior patient assessment remains unchanged. Pt resting comfortably in the chair. Heart sounds S1S2 and distant and lungs diminished bibasalar. Pain remains controlled at a 2 out of 10. Pt needs to be reminded to use ISB every hour, and ISB technique
has improved. Pt has ambulated in the hallway with one person assist for balance. Demonstrates proper heart pillow use.
[2023-11-12 16:32] LABS: Glucose - Point of Care 95 mg/dl (70-99)
[2023-11-12 17:35] LABS: Glucose - Point of Care 104 mg/dl (70-99)
[2023-11-12] MEDS: CRESTOR 40 MG PO (17:36)
[2023-11-12 19:20] LABS: Glucose - Point of Care 111 mg/dl (70-99)
--- NOTE | 2023-11-12 20:00 | PTCARENOTE ---
Prior assessment remains unchanged. Heart and lung sounds unchanged. Infection prevention education provided including hand hygiene, incision care at home, and signs/symptoms of infection. Education will require reinforcement. Pt and family
educated about the return of normal bowel function postoperatively and that education was reinforced by CT surgery. Pt and family are very concerned that pt usually had daily bowel movements. He is currently on around the clock laxative per
routine postop treatment.
--- NOTE | 2023-11-12 21:22 | PTCARENOTE ---
Discussed current BP with CT surgery, will hold metoprolol and amiodarone, give fluid bolus and reevaluate.
[2023-11-12 21:31] LABS: Glucose - Point of Care 157 mg/dl (70-99)
--- NOTE | 2023-11-12 22:27 | PTCARENOTE ---
Blood pressure discussed with CT surgery PA. Will give metoprolol now with MAP 65MMHG, pt has not been dizzy at all and safely in bed. Will continue to hold amiodarone for now.
--- NOTE | 2023-11-12 23:05 | PTCARENOTE ---
Received patient from [facility]. LEXA. SBP 90s. Amiodarone to be held per Sopihe Daley. Assessment per nursing flowsheet.
[2023-11-12 23:36] LABS: Glucose - Point of Care 105 mg/dl (70-99)
[2023-11-13] VITALS (16 sets, daily range): BP systolic 94–114; BP diastolic 52–64; PULSE 68; O2SAT 98–100; BMI 26.7
[2023-11-13 01:34] LABS: Glucose - Point of Care 95 mg/dl (70-99)
[2023-11-13] MEDS: PACERONE PO (03:02)
[2023-11-13 03:34] LABS: Glucose - Point of Care 101 mg/dl (70-99)
[2023-11-13 04:00] LABS: Hematocrit 27.3 % (39.0-52.0); Hemoglobin 8.5 g/dL (13.0-18.0); Mean Corp Hgb Conc. 31.1 g/dL (33.0-37.0); Mean Corpuscular Hgb 23.4 pg (27.0-31.0); Mean Corpuscular Volume 75.2 fL (80.0-94.0); Platelet Count 142 10^3/uL (130-400); Red Blood Cell Count 3.63 10^6/uL (4.70-6.10); Red Cell Dist. Width 17.3 % (11.5-14.5); White Blood Cell Count 11.3 10^3/uL (4.8-10.8)
[2023-11-13 04:15] LABS: Blood Urea Nitrogen 13 mg/dl (9-20); Carbon Dioxide 26 mmol/L (22-30); Chloride 107 mmol/L (98-107); Estimated Creatinine Clearance 80 ml/min; Glucose 92 mg/dl (70-99); Magnesium 2.3 mg/dl (1.6-2.3); Potassium 3.9 mmol/L (3.5-5.1); Sodium 132 mmol/L (135-145); eGFR > 60.00
--- NOTE | 2023-11-13 05:20 | W.PN.CT ---
Today's Communication / Plan
-
-pod #2
-no issues overnight, no complaints, feels better since CT came out
-hypotensive yesterday with sbp 90s - ambulated without problems, denied any dizziness, tolerated BB, takes bid Flomax. Monitor BP
-continue to ambulate, encouarage IS, OOB
-possible d/c soon
Assessment / Plan
-
- s/p Robotic assisted MIDCAB (single-vessel bypass HUANG in situ to LAD) on 11/11/[address] Camarena, pod #2
- intraop JOSÉ: LVEF was 55% pre and post with no regional wma. He had mild aortic valve insufficiency, mild mitral valve sufficiency, mild tricuspid valve insufficiency which remained unchanged.
- Coronary Artery Disease with proximal LAD involvement and in-stent restenosis with chronic total occlusion
- Previous myocardial infarction
- Hypertension
- Hyperlipidemia
- Diabetes type 2 (A1c 6.7)
- Psoriasis
- BPH
- Incidental finding of 4mm lung nodules on CTA
- Microcytic anemia preop- iron deficiency
- Acute postop blood loss anemia - stable, without trasfusion
- Acute postop atelectasis
- Acute postop hyponatremia
Discussed patient care with: Nursing and Care Team
Subjective
Procedure
- s/p Robotic assisted MIDCAB (single-vessel bypass HUANG in situ to LAD) on 11/11/[address] Camarena
-
Date of Service: November 13, 2023
Objective Data
-
Lab Results
11/13/23 03:44
11/13/23 03:44
PT 16.2 Sec (11.4-14.6) H 11/11/23 11:17
INR 1.29 11/11/23 11:17
APTT 27.9 Sec (23.4-35.0) 11/11/23 11:17
Vital Signs
Vital Signs
Temp Pulse Resp BP Pulse Ox
98.9 F 66 18 103/56 92
11/13/23 03:46 11/13/23 03:45 11/13/23 03:46 11/13/23 03:30 11/13/23 03:46
CT Intake/Output/Weight
11/12/23 11/12/23 11/13/23
06:59 18:59 06:59
Intake Total 13.2 / 1018.3 871.4 / 1336.4 465 / 1336.4
Output Total 950 / 1855 130 / 1230 1100 / 1230
Balance -936.8 / -836.7 741.4 / 106.4 -635 / 106.4
SaO2: 92
Physical Exam
-
General: Awake and AOx3 (grandson translating at bedside)
Cardiovascular: Regular rate & rhythm, No Murmurs and No Rub
Respiratory: Decreased Breath Sounds
Sternum: Stable
Incision: Clean, Dry and Intact
Extremities: Other (trace edema)
Abdomen: soft, mildly distended, + bowel sounds, nontender, no pain or nausea
Data Reviewed
-
Lab Results: Results Reviewed
Medications: Active Meds Reviewed
Chest X-Ray: Report Reviewed and Image Reviewed
ECG: Report Reviewed and Image Reviewed
[2023-11-13 05:46] LABS: Glucose - Point of Care 87 mg/dl (70-99)
[2023-11-13] MEDS: TYLENOL 1000 MG PO (05:47)
--- NOTE | 2023-11-13 08:00 | PTCARENOTE ---
Assumed care of patient from lieutenant shift supervisor RN. AAO x 3. SR on monitor. Room air 96%, using IS independently to 1000. No cough or sputum noted. Abdomen soft and nontender, denies nausea, appetite good, passing flatus. Voiding w/o issue in toilet.
Family reported voiding large amounts. Dp pulses palpable. No edema appreciated. Surgical sites well approximated with glue.
[2023-11-13] MEDS: JARDIANCE 10 MG PO (08:21)
[2023-11-13] MEDS: PACERONE 200 MG PO (08:21)
[2023-11-13] MEDS: SENOKOT-S 1 TABLET PO (08:21)
[2023-11-13] MEDS: PROTONIX 40 MG PO (08:21)
[2023-11-13] MEDS: FLOMAX 0.400000000000000022 MG PO (08:21)
[2023-11-13] MEDS: BACTROBAN 2% OINTMENT 1 APPLIC NASAL (08:21)
[2023-11-13] MEDS: PLAVIX 75 MG PO (08:21)
[2023-11-13] MEDS: MAGNESIUM OXIDE 500 MG PO (08:21)
[2023-11-13] MEDS: LOW STRENGTH ASPIRIN 81 MG PO (08:21)
[2023-11-13] MEDS: LOPRESSOR 12.5 MG PO (08:21)
[2023-11-13] MEDS: NEURONTIN 100 MG PO (08:22)
[2023-11-13] MEDS: LIDOCAINE 4% PATCH TOPICAL (08:22)
[2023-11-13] MEDS: MIRALAX 17 GRAMS PO (08:22)
[2023-11-13] MEDS: NSS IV (08:22)
[2023-11-13] MEDS: GLUCOPHAGE 500 MG PO (09:07)
[2023-11-13] MEDS: KCL 20 MEQ PO (09:07)
[2023-11-13] MEDS: LASIX 40 MG PO (09:07)
--- NOTE | 2023-11-13 10:04 | W.DCSUMMARY ---
Discharge Summary
Discharge Data
Date of Admission: 11/11/23
Date of Discharge: 11/13/23
Total time spent discharging patient (in min): 34
-
Pending Results: No
Hospital Course
Primary care physician:
Abhi Crum
Outpatient debt collection specialist:
Dr. Toby Freeman
Inpatient consultants:
DCA, flap maker
Procedures:
1. Robotic assisted MIDCAB (single-vessel bypass HUANG in situ to LAD)
Primary Diagnosis:
1. Coronary Artery Disease with proximal LAD involvement and in-stent restenosis with chronic total occlusion
Secondary Diagnoses:
1. Previous myocardial infarction
2. Hypertension
3. Hyperlipidemia
4. Diabetes mellitus type 2
5. Psoriasis
6. Benign prostatic hypertrophy
HPI: 73-year-old male with known history of significant coronary artery disease status post LAD stent in 2000 and restenting in May 2024 presented for an elective CABG with Dr. Camarena on 11/10.
Hospital course: Patient arrived the morning of 11/10 for an elective robotic assisted CABG with Dr. Camarena. Postoperatively he was extubated in the OR and was started on a nitroglycerin drip for blood pressure control and transferred to the CVICU.
Nitroglycerin was weaned off and patient's arterial line and slick catheter was removed on postoperative day #0. On 11/11 postoperative day #1 chest tube and Conroy catheter was removed and patient was given 250 cc of lactated Ringer's for low blood
pressures. Patient's blood sugars were elevated so insulin drip remained and Jardiance p.o. was resumed. On 5 postoperative day #2, insulin drip was turned off and patient's home dose of metformin was resumed. Patient ambulating without issue.
2 view chest x-ray remained stable Home meds were restarted and patient was deemed stable for discharge.
Home medication changes:
See below
Discharge Plan
-
Patient Disposition: Home (Routine Discharge)
Discharge Diagnosis/Procedures: CABG
Condition: Good
Diet: Low Cholesterol and Low Sodium
Activity: No strenuous activity
Driving Restrictions: Not until seen by your Dr
Bathing Restrictions: OK to Shower
Other Services: Cardiac Rehab
Specialty Instructions: Weigh Daily- Call MD for wt gain/loss 3 lbs overnight/5 lbs in 1 week
Activity Restrictions/Additional Instructions:
ACTIVITY:
-No strenuous activity: no heavy lifting, pushing, pulling anything over 15 pounds for one month
-continue to use stairs as tolerated
DRIVING RESTRICTIONS:
-No driving for one month or until approved by your surgeon
WOUND CARE:
-Shower daily. Use soap & water.
-No lotions, creams or powders on incision area.
DIET:
-continue a low fat/low cholesterol diet.
-IF you are diabetic, continue carb controlled diet.
CARDIAC REHAB:
-Please make appointment to start in 5-6 weeks with your local hospital program. (See Cardiac Rehabilitation Discharge Booklet).
SPECIALTY INSTRUCTIONS:
-Weigh yourself daily. Call your physician for any weight gain/loss of 3 lbs overnight or 5 lbs in one week.
-REPORT any clicking noise or uneven appearance of your sternum to your surgeon immediately.
-If you smoke, you are instructed to quit. The [place] smoking hotline phone number is [phone]
Referrals:
CT Transitional Care Nurse [Outside] - in one to two days
(
The Cardiothoracic Transitional Care Nurse will call you to set up a visit in 1-2 days.)
Abhi Crum MD [Family Provider] - in four to six weeks (Please make an appointment in four to six weeks. )
Chris Camarena MD [Active] - 12/09/23 2:30 pm
Sujata Freeman MD [Active] - 12/25/23 11:15 am
Additional Discharge Medication Instructions: Do not restart your humira for another 2 weeks
STOP taking amlodipine and valsartan until directed by a doctor to restart
Prescriptions:
New
acetaminophen 325 mg Tablet
650 mg PO Q4HPRN PRN (Reason: mild pain,headache,temp >101F ) Qty: 0 0RF
Continued
cyanocobalamin (vitamin B-12) 1,000 MCG tablet
1,000 mg PO HS
aspirin 81 MG tablet,chewable
81 mg PO DAILY
metoprolol succinate 25 MG tablet extended release 24 hr
25 mg PO DAILY
cholecalciferol (vitamin D3) [Vitamin D3] 1,000 UNIT capsule
2,000 unit PO HS
metformin 500 mg Tablet
500 mg PO BID
polyethylene glycol 3350 17 gram Powder In Packet
17 g PO DAILY
famotidine 40 mg Tablet
40 mg PO DAILY
clobetasol 0.05 % Cream
1 applic TOPICAL DAILY
clopidogrel [Plavix] 75 mg Tablet
75 mg PO DAILY
calcipotriene 0.005 % Cream
1 applic TOPICAL DAILY
rosuvastatin 40 mg Tablet
40 mg PO DAILY
empagliflozin 10 mg Tablet
10 mg PO DAILY
tamsulosin 0.4 MG capsule
0.4 mg PO BID
Held
Humira(CF) Pen 40 mg/0.4 mL Pen Injector Kit
40 mg SC Q15D
Hold Instructions: Resume on 11/27/23.
Discontinued
valsartan 80 mg Tablet
80 mg PO DAILY
nitroglycerin 0.4 mg Tablet, Sublingual
0.4 mg SUBLINGUAL Q5M PRN (Reason: CHEST PAIN)
amlodipine 2.5 MG tablet
2.5 mg PO DAILY
Discharge Orders:
Discharge Patient (As Directed); Ordered 11/13/23
Ordered By: Luna See
Care Plan Goals
Care Plan Goals:
Problem: Readiness for enhanced knowledge related to diagnosis and treatment plan
Goal: Understand your diagnosis and treatment plan needs, including medications if applicable.
Instructions: Know your diagnosis, underlying causes and treatment plan options, including medications if applicable. Consult with your health care team to learn about your diagnosis and treatment plan, including medications if applicable.
Discharge Date and Time
Print Language: Jenny
--- NOTE | 2023-11-13 12:49 | PTCARENOTE ---
Pt assisted into shower by RN. Tolerated with help from his family member. PIV and telemetry pack removed. Discharge instructions reviewed with patients family member. Questions answered. Wheeled to car by volunteer.
== END 2023-11-13 13:04 | disposition home or self-care (01) | DRG 236 ==
LOC: CVICU 05:01
PROVIDERS: Clinical Nurse Specialist Acute Care; Physician Assistant Medical; Thoracic Surgery (Cardiothoracic Vascular Surgery); ADMITTING PHYSICIAN Thoracic Surgery (Cardiothoracic Vascular Surgery); CONSULT PHYSICIAN Internal Medicine Critical Care Medicine; FAMILY PHYSICIAN Internal Medicine; OTHER PHYSICIAN Internal Medicine Interventional Cardiology
PROC: 8E0W0CZ Robotic Assisted Procedure of Trunk Region, Open Approach (ICD-10-PCS; 2023-11-11)
PROC: 3E0T3BZ Introduction of Anesthetic Agent into Peripheral Nerves and Plexi, Percutaneous Approach (ICD-10-PCS; 2023-11-11)
PROC: 3E0T33Z Introduction of Anti-inflammatory into Peripheral Nerves and Plexi, Percutaneous Approach (ICD-10-PCS; 2023-11-11)
PROC: 0W9D40Z Drainage of Pericardial Cavity with Drainage Device, Percutaneous Endoscopic Approach (ICD-10-PCS; 2023-11-11)
PROC: B24BZZ4 Ultrasonography of Heart with Aorta, Transesophageal (ICD-10-PCS; 2023-11-11)
PROC: 02100A9 Bypass Coronary Artery, One Artery from Left Internal Mammary with Autologous Arterial Tissue, Open Approach (ICD-10-PCS; 2023-11-11)
DX: T82.855A Stenosis of coronary artery stent, initial encounter (principal); D62 Acute posthemorrhagic anemia; J98.11 Atelectasis; E87.1 Hypo-osmolality and hyponatremia; I25.10 Atherosclerotic heart disease of native coronary artery without angina pectoris; I11.9 Hypertensive heart disease without heart failure; E78.5 Hyperlipidemia, unspecified; E11.9 Type 2 diabetes mellitus without complications; E55.9 Vitamin D deficiency, unspecified; R91.8 Other nonspecific abnormal finding of lung field; I25.82 Chronic total occlusion of coronary artery; L40.9 Psoriasis, unspecified; N40.0 Benign prostatic hyperplasia without lower urinary tract symptoms; Y83.1 Surgical operation with implant of artificial internal device as the cause of abnormal reaction of the patient, or of later complication, without mention of misadventure at the time of the procedure; Y92.9 Unspecified place or not applicable; Z79.82 Long term (current) use of aspirin; Z79.84 Long term (current) use of oral hypoglycemic drugs; Z79.02 Long term (current) use of antithrombotics/antiplatelets; I25.2 Old myocardial infarction
CPT/HCPCS: 36415; 71045; 71046; 71275; 80048; 80053; 81003; 82248; 82330; 82565; 82728; 82805; 82947; 82962; 83036; 83540; 83550; 83735; 84132; 84302; 84520; 85014; 85018; 85025; 85027; 85049; 85610; 85730; 86803; 86850; 86900; 86901; 86920; 87070; 93005; 93312; 93320; 93325; 93880; 94010; 94060; J2916; Q9967